=== PATIENT | female | born 1955 | race African-American/Black ===

== ENCOUNTER 2022-11-07 05:50 | Day surgery (SDC) | payer OTHER | END 2022-11-07 12:30 | disposition home or self-care (01) | LOC: AMB-ENDOS 05:50 | PROVIDERS: ATTEND Surgery | DX: K63.5 Polyp of colon (principal); K57.30 Diverticulosis of large intestine without perforation or abscess without bleeding; Z20.822 Contact with and (suspected) exposure to COVID-19 ==

== ENCOUNTER 2022-11-15 10:15 | Inpatient (IN) | payer OTHER ==
[~2022-11-15] VITALS: Ht 157.5 cm; Wt 117.9 kg
[2022-11-15] MEDS ORDERED: NORVASC5 MG PO (14:24)
[2022-11-15] MEDS ORDERED: ZESTRIL5 MG PO (14:24)
[2022-11-15] MEDS ORDERED: LEVOXYL125 MCG PO (14:24)
[2022-11-15] MEDS ORDERED: HYDROCHLOROTHIA25 MG PO (14:25)
[2022-11-15] MEDS ORDERED: METFORMIN HCL500 MG (14:25)
[2022-11-21] MEDS ORDERED: LORATADINE10 MG (07:55)
[2022-11-21] MEDS ORDERED: FLUOXETINE HCL40 MG (07:55)
[2022-11-21] MEDS ORDERED: ATORVASTATIN CA10 MG (07:55)
[2022-11-21] MEDS ORDERED: METFORMIN HCL500 M4 (07:55)
[2022-11-21] MEDS ORDERED: BUPROPION XL150 MG (07:56)
[2022-11-21] MEDS ORDERED: TRAZODONE HCL50 MG (07:56)
[2022-11-21] MEDS ORDERED: CLONAZEPAM1 MG (07:56)
[2022-11-21] MEDS ORDERED: VITAMIN D3125 MC2 (07:56)
[2022-11-24] MEDS ORDERED: ACETAMINOPHEN500 M2 PO (17:54)
[2022-11-24] MEDS ORDERED: NEURONTIN300 MG PO (17:54)
== END 2022-11-24 23:07 | disposition home or self-care (01) | DRG 330 ==
LOC: O/R 11-21 07:46 → SURH 11-21 07:46 → SURG 11-21 10:15 → SURH 11-21 10:59 → SURG 11-21 11:00 → SURH 11-24 23:07
PROVIDERS: ADMIT Surgery; ATTEND Surgery
PROC: 07BB4ZZ Excision of Mesenteric Lymphatic, Percutaneous Endoscopic Approach (ICD-10-PCS; 2022-11-21)
PROC: 0DTF4ZZ Resection of Right Large Intestine, Percutaneous Endoscopic Approach (ICD-10-PCS; principal; 2022-11-21 11:00)
DX: C18.0 Malignant neoplasm of cecum (principal); K92.1 Melena; R59.0 Localized enlarged lymph nodes; I10 Essential (primary) hypertension; E11.9 Type 2 diabetes mellitus without complications; E66.01 Morbid (severe) obesity due to excess calories